=== PATIENT | female | born 1955 | race Caucasian/White ===

== ENCOUNTER 2017-08-15 20:31 | Emergency (ER) | payer OTHER ==
[~2017-08-15] VITALS: Ht 152.4 cm; Wt 70.3 kg
[~2017-08-15 20:31] MED LIST: ALTACE5 MG ORAL; IBUPROFEN600 MG PO; LIPITOR40 MG ORAL; METFORMIN HCL1000 M1 ORAL; NORCO 5-325 TA1 EACH ORAL; VALIUM5 MG ORAL
[2017-08-15] MEDS ORDERED: FISH OIL500 M3 PO (20:41)
[2017-08-15] MEDS ORDERED: ASPIR 8181 MG ORAL (20:41)
[2017-08-15] MEDS ORDERED: PRAVACHOL20 MG ORAL (20:41)
[2017-08-15] MEDS ORDERED: ZETIA10 MG ORAL (20:41)
[2017-08-15 21:00] VITALS: BP 156/80
--- NOTE | 2017-08-15 21:22 | Emergency Room Report ---
History of Present Illness General Chief Complaint: Hypertension Source: Patient Present Illness HPI 61yo F c/o L scapular pain since yesterday morning with associated blurred vision of her L eye and dizziness She denies n/v, d/c, SOB, f/c, leg pain/swelling, cough, syncope, CP/Abd pain, n /t/weakness, slurred speech. She has not tried meds for her pain, it is intermittent and non-radiating, achy , moderate intensity, with no alleviating or exacerbating features. Allergies: Coded Allergies: CODEINE (Unverified Allergy, Unknown, 12/03/13) MORPHINE (Verified Adverse Reaction, Severe, GI UPSET, 04/01/13) Patient History Past Medical History: see triage record Now: No : 3 Para: 3 Reviewed Nursing Documentation: PMH: Agreed; PSxH: Agreed Nursing Documentation-PMH Hx Cardiac Problems: No - high cholesterol Hx Hypertension: Yes Hx Diabetes: Yes Hx Cancer: No Hx Gastrointestinal Problems: No Hx Neurological Problems: No Review of Systems All Other Systems: negative except mentioned in HPI Physical Exam Vital Signs Date Time Temp Pulse Resp B/P (MAP) Pulse Ox O2 Delivery O2 Flow Rate FiO2 08/15/17 20:35 97.8 84 14 183/89 97 Room Air 97.9 Sp02 EP Interpretation: reviewed, normal General Appearance: no apparent distress, alert, non-toxic Head: normocephalic Eyes: bilateral eye normal inspection, bilateral eye PERRL, bilateral eye EOMI ENT: normal ENT inspection, hearing grossly normal, normal pharynx, no angioedema, normal voice, moist mucus membranes Neck: normal inspection, full range of motion, supple, supple/symm/no masses Respiratory: chest non-tender, lungs clear, normal breath sounds, chest symmetrical, palpation of chest normal Cardiovascular #1: normal peripheral pulses, regular rate, rhythm Cardiovascular #2: 2+ radial (R), 2+ radial (L), 2+ dorsalis pedis (R), 2+ dorsalis pedis (L) Gastrointestinal: normal inspection, non tender, soft, no mass, no guarding, no rebound Rectal: deferred Genitourinary: normal inspection, no CVA tenderness Musculoskeletal: back normal, gait/station normal, normal range of motion, non- tender, no calf tenderness, Ashley's Sign negative Neurologic: alert, responsive, child care team lead III-XII nml as tested, motor strength/tone normal, sensory intact, speech normal, no pronator Psychiatric: judgement/insight normal, memory normal, mood/affect normal Skin: normal color, no rash, warm/dry, normal turgor Lymphatic: no adenopathy Medical Decision Making ER Course 61-year-old female with history of hypertension, hyperlipidemia, diabetes type 2 , his tobacco use history, presenting with blurred vision intermittently from her left eye, dizziness, atraumatic left scapula pain, normal EKG, blood pressure is improved compared to the systolic of 180s that she reported at home yesterday, she's had no changes in medication, and has never had an evaluation for a stroke or acute coronary syndrome. I do think she will require admission for reevaluation in rule out DC as well as possible neurologic monitoring to ensure her dizziness and visual symptoms do not persist or progress, I do think she may need a cardiac stress test if this left scapular pain represents atypical angina. Patient's chest x-ray did reveal a widened mediastinum when compared to previous chest x-ray dated 12/03/2013 Therefore, patient had a CT angiogram chest abdomen pelvis ordered to evaluate for possible aortic dissection, given the patient's scapular pain, hypertension , dizziness, left eye pain, abnormal mediastinal silhouette. Peripheral pulses were symmetrical, however this finding is still concerning. She'll be given Flexeril for pain in the interim until further evaluation is completed and then likely given aspirin if there is no evidence of any aortic dissection, and no evidence of any intracranial bleeding. EKG Diagnostic Results EKG Time: 20:59 EP Interpretation: no st-t changes, no twi Rate: normal Rhythm: NSR ST Segments: no acute changes ASA given to the pt in ED: Yes Rhythm Strip Diag. Results Rhythm Strip Time: 21:23 EP Interpretation: yes Rate: 77 Rhythm: NSR, no PVC's, no ectopy Chest X-Ray Diagnostic Results Chest X-Ray Diagnostic Results : Chest X-Ray Ordered: Yes # of Views/Limited/Complete: 1 View Indication: Other EP Interpretation: Yes PA Xray: Interpretation reviewed Interpretation: no consolidation, no effusion, no pneumothorax, other - widened mediastinum Impression: Other - widened mediastinum Electronically Signed by: Gerri Wiseman MD CT/MRI/US Diagnostic Results CT/MRI/US Diagnostic Results : Imaging Test Ordered: ct head Last Vital Signs Date Time Temp Pulse Resp B/P (MAP) Pulse Ox O2 Delivery O2 Flow Rate FiO2 08/15/17 20:35 97.8 84 14 183/89 97 Room Air 97.9 Status: improved Reevaluation Impression Patient's CT head as well as CT chest abdomen pelvis for aortic pathology is negative for any acute pathology at all. Her labs are negative for any acute pathology as well, her EKG is unremarkable, she is still having left scapular pain, she was given a full dose of aspirin and will be admitted to Dr. Hamilton Copeland. Possible ACS. Disposition: ADMITTED INPATIENT Condition: Stable Physician Consult: Admitted to GERRI Rod M.D August 15, 2017 21:22
[2017-08-15] MEDS ORDERED: Cyclobenzaprine 10mg Tab ORAL ONE (21:30)
[2017-08-15] MEDS ORDERED: Isovue-370 150ml vial INJ PRN (21:30)
[2017-08-15 21:35] LABS: BASOPHILS % (AUTO) 1.6 % (0.0-2.0); EOSINOPHILS % (AUTO) 7.5 % (0.0-3.0); HEMATOCRIT 45.9 % (37.0-47.0); HEMOGLOBIN 15.2 G/DL (12.0-16.0); LYMPHOCYTES % (AUTO) 40.8 % (20.0-45.0); MEAN CORPUSCULAR VOLUME 86 FL (80-99); NEUTROPHILS % (AUTO) 43.1 % (45.0-75.0); PLATELET COUNT 168 K/UL (150-450); RED BLOOD COUNT 5.36 M/UL (4.20-5.40); RED CELL DISTRIBUTION WIDTH 12.7 % (11.6-14.8); WHITE BLOOD COUNT 7.6 K/UL (4.8-10.8)
[2017-08-15 21:39] LABS: ANION GAP 9 mmol/L (5-15); BLOOD UREA NITROGEN 16 mg/dL (7-18); CALCIUM 9.5 MG/DL (8.5-10.1); CARBON DIOXIDE 29 MMOL/L (21-32); CHLORIDE 102 MMOL/L (98-107); CREATININE 0.6 MG/DL (0.55-1.30); POTASSIUM 3.4 MMOL/L (3.5-5.1); SODIUM 140 MMOL/L (136-145)
[2017-08-15 21:54] LABS: ALANINE AMINOTRANSFERASE 32 U/L (12-78); ALBUMIN 3.9 G/DL (3.4-5.0); ALKALINE PHOSPHATASE 67 U/L (46-116); ASPARTATE AMINO TRANSFERASE 17 U/L (15-37); BILIRUBIN,TOTAL 0.2 MG/DL (0.2-1.0); CKMB 2.1 NG/ML (0.0-3.6); CREATINE KINASE 135 U/L (26-308)
[2017-08-15 22:47] VITALS: BP 144/80
[2017-08-16 00:41] VITALS: BP_SYST 144; BP_SYST 147; BP_DIAS 74; BP_DIAS 80
--- NOTE | 2017-08-16 08:56 | Diagnostic Imaging Report ---
Indications: Dizziness, headache Technique: Spiral acquisitions obtained through the brain. Angled axial and coronal 5 x 5 mm slices were reconstructed. Total dose length product 1326.82 mGycm. CTDI vol(s) 70.38 mGy. Dose reduction achieved using automated exposure control Comparison: 12/03/2013 Findings: There is frontal volume loss. No acute intracranial hemorrhage or edema, mass effect, or midline shift. Normal vera-white differentiation. There is evidence of empty sella. Visualized orbits are unremarkable. There is left ethmoid sinus disease. The mastoids are clear. The calvarium is intact. Impression: Mild frontal cortical volume loss. Negative for acute intracranial bleed or mass effect Sinus disease Incidental findings as noted This agrees with the preliminary interpretation provided overnight by [facility]. The CT scanner at [facility] is accredited by the [employer] and the scans are performed using protocols designed to limit radiation exposure to as low as reasonably achievable to attain images of sufficient resolution adequate for diagnostic evaluation.
--- NOTE | 2017-08-16 09:07 | Diagnostic Imaging Report ---
INDICATION: Hypertension, shortness of breath, pain radiating to left shoulder TECHNIQUE: IV administration nonionic contrast. Arterial phase spiral acquisitions obtained through the chest, abdomen, and pelvis. Multiplanar and 3-D reconstructions were generated. Total dose length product 1169 mGycm. CTDIvol(s) 8, 32, 16 mGy. Radiation dose was minimized using automated exposure control COMPARISON: none FINDINGS Vascular: The pulmonary arteries are well opacified. No intraluminal filling defects or other findings to suggest acute pulmonary embolus demonstrated. Normal caliber pulmonary arteries. No evidence of right ventricular dilatation. Normal heart size. No evidence of thoracic aortic aneurysm or dissection. Normal caliber nonstenotic great neck vessels with normal branching anatomy. No evidence of abdominal aortic aneurysm or dissection. Patent nonstenotic visceral vessels with normal branching anatomy. No significant stenosis demonstrated. Patent nonstenotic bilateral common iliac, external iliac, and common femoral arteries. Chest: The lungs demonstrate posterior dependent atelectatic changes, are otherwise clear, no infiltrates, effusions, masses, or nodules demonstrated. No mediastinal or hilar mass or adenopathy. No pericardial effusion. There are bilateral breast implants. No axillary or chest wall mass or adenopathy. The included thyroid is unremarkable. The bones are unremarkable. Esophagus is unremarkable. Abdomen pelvis: The appendix is normal. No evidence of diverticulosis or diverticulitis. Small bowel loops are slightly prominent, fluid-filled, with slightly prominent mural enhancement. This appearance extends to the terminal ileum. No free or loculated intraperitoneal air or fluid. The stomach and duodenum are unremarkable. The liver, gallbladder, bile ducts, pancreas, spleen, adrenals, kidneys are all unremarkable. Uterus and ovaries are unremarkable except for a few small uterine calcifications. No pelvic mass or adenopathy. No retroperitoneal or mesenteric mass or adenopathy. The bladder is mildly distended. The bones are unremarkable. IMPRESSION: No evidence of acute pulmonary embolus, aneurysm, dissection, or other acute thoracic or abdominal/pelvic vascular pathology Mildly prominent fluid-filled small bowel loops with wall enhancement, could indicate enteritis changes. Correlate with clinical findings Bilateral basilar dependent pulmonary atelectatic changes Distended bladder Bilateral breast implants This agrees with the preliminary interpretation provided overnight by [facility]. The CT scanner at [facility] is accredited by the [employer] and the scans are performed using protocols designed to limit radiation exposure to as low as reasonably achievable to attain images of sufficient resolution adequate for diagnostic evaluation.
--- NOTE | 2017-08-16 11:16 | Diagnostic Imaging Report ---
Indication: Chest pain Technique: One view of the chest Comparison: 12/03/2013 Findings: Lungs and pleural spaces are clear. The heart size is upper limits of normal. The aorta is tortuous and somewhat ectatic. No significant interim change Impression: No acute process
--- NOTE | 2017-08-19 14:02 | Cardiology Report ---
APPROVED REPORT EKG Measurement Heart [id number] Normal sinus rhythm Septal infarct, age undetermined Abnormal ECG
== END 2017-08-16 00:52 | disposition left against medical advice (07) ==
LOC: EMR 21:20 → CANBEDREQ 08-16 00:06 → EMR 08-16 00:52
DX: M25.512 Pain in left shoulder (principal); R42 Dizziness and giddiness; H53.8 Other visual disturbances; I10 Essential (primary) hypertension; E78.5 Hyperlipidemia, unspecified; E11.9 Type 2 diabetes mellitus without complications; Z87.891 Personal history of nicotine dependence; Z88.5 Allergy status to narcotic agent
CPT/HCPCS: 36415; 70450; 71045; 71275; 74174; 80053; 82550; 82553; 84484; 85025; 93005; 99284; Q9967

== ENCOUNTER 2018-05-23 21:38 | Inpatient (IN) | payer OTHER ==
[~2018-05-23] VITALS: Ht 152.4 cm; Wt 72.6 kg
[~2018-05-23 21:38] MED LIST changes: +ASPIR 8181 MG ORAL; +FISH OIL500 M3 PO; +PRAVACHOL20 MG ORAL; +ZETIA10 MG ORAL
--- NOTE | 2018-05-23 21:50 | NUR ---
ED Nurse Note: Patient walk in c/o fever, chills, chest pain, back pain. Patient states she fainted on saturday but did not go to the hospital. Temp 100.4. AO4. NAD.
--- NOTE | 2018-05-23 21:58 | Emergency Room Report ---
History of Present Illness General Chief Complaint: Chest Pain Source: Patient Present Illness HPI This is a 62-year-old female with a history of high blood pressure and diabetes. She presents with chief complaint of fever, chest pain, and back pain. Onset for 3 days now. 3 days ago, she was at a wedding when she had a syncopal episode while sitting. She refused 911 transport. She went home after the wedding and since then she's been in bed. She had high fever. She has nausea but no vomiting. She has chest pain and upper back pain bilaterally. Nothing made it better. And exertion makes it worse. Did not take anything for this. She just finished a seven-day course of Macrobid for UTI. Pain is 9 out of 10. Nothing made it better. Any movement made it worse. Allergies: Coded Allergies: CODEINE (Unverified Allergy, Unknown, 12/03/13) MORPHINE (Verified Adverse Reaction, Severe, GI UPSET, 04/01/13) Patient History Past Medical History: DM, HTN Past Surgical History: none Pertinent Family History: none Social History: Denies: smoking Last Menstrual Period: ALEJA Now: No Immunizations: other Reviewed Nursing Documentation: PMH: Agreed; PSxH: Agreed Nursing Documentation-PMH Past Medical History: No History, Except For Hx Cardiac Problems: No - high cholesterol Hx Hypertension: Yes Hx Diabetes: Yes Hx Cancer: No Hx Gastrointestinal Problems: No Hx Neurological Problems: No Review of Systems Constitutional: Reports: fever, malaise, weakness Eye: Denies: eye pain, blurred vision ENT: Denies: ear pain, nose congestion, throat swelling Respiratory: Reports: shortness of breath; Denies: cough Cardiovascular: Reports: chest pain; Denies: palpitations Gastrointestinal: Denies: abdominal pain, diarrhea, nausea, vomiting Musculoskeletal: Reports: back pain; Denies: joint pain Skin: Denies: rash Neurological: Denies: headache, numbness Endocrine: Denies: increased thirst, increased urine Hematologic/Lymphatic: Denies: easy bruising All Other Systems: negative except mentioned in HPI Physical Exam Vital Signs Date Time Temp Pulse Resp B/P (MAP) Pulse Ox O2 Delivery O2 Flow Rate FiO2 05/23/18 21:42 100.4 128 20 51/75 95 Room Air vitals with fever and tachycardia and high blood pressure Sp02 EP Interpretation: reviewed, normal General Appearance: no apparent distress, alert, other - Ill-appearing Head: normocephalic, atraumatic Eyes: bilateral eye PERRL, bilateral eye EOMI ENT: hearing grossly normal, normal pharynx Neck: full range of motion, supple, no meningismus Respiratory: chest non-tender, lungs clear, normal breath sounds Cardiovascular #1: regular rate, rhythm, no murmur Gastrointestinal: normal bowel sounds, non tender, no mass, no organomegaly, no bruit, non-distended Musculoskeletal: back normal, gait/station normal, normal range of motion Neurologic: alert, oriented x3 Psychiatric: mood/affect normal Skin: warm/dry Medical Decision Making Diagnostic Impression: Primary Impression: Influenza-like illness Additional Impressions: CAP (community acquired pneumonia) Qualified Codes: J18.9 - Pneumonia, unspecified organism Sepsis Qualified Codes: A41.9 - Sepsis, unspecified organism ER Course Patient with flulike illness and possible pneumonia on chest x-ray. She does have some increase in tissue markings bilaterally. She has no cough or shortness of breath however. She still have a fever for 4 days. She does not want to stay in the hospital but I was able to convince to stay. Will start tamiflu even though this has been 4 days of symptoms. No evidence of ACS, PE, dissection to name a few. patient will be admitted here. I discussed case with Dr. Le for admission. EKG Diagnostic Results Rate: tachycardiac Rhythm: NSR ST Segments: no acute changes Rhythm Strip Diag. Results EP Interpretation: yes Rate: 95 Rhythm: NSR Chest X-Ray Diagnostic Results Chest X-Ray Diagnostic Results : Chest X-Ray Ordered: Yes # of Views/Limited/Complete: 1 View Last Vital Signs Date Time Temp Pulse Resp B/P (MAP) Pulse Ox O2 Delivery O2 Flow Rate FiO2 05/23/18 21:42 100.4 128 20 51/75 95 Room Air Status: improved Disposition: ADMITTED INPATIENT Condition: Serious Tom Smith MD May 23, 2018 21:58
[2018-05-23] MEDS ORDERED: Sodium Chloride 2,200 ML IVLG ONE (22:00)
[2018-05-23] MEDS ORDERED: Ketorolac 30mg Inj IV ONE (22:00)
[2018-05-23] MEDS ORDERED: Acetaminophen 500mg (ES) tab ORAL ONE (22:00)
--- NOTE | 2018-05-23 22:00 | NUR ---
ED Nurse Note: Blood drawn; sent down to lab.
[2018-05-23 22:15] LABS: BASOPHILS % (AUTO) 0.5 % (0.0-2.0); EOSINOPHILS % (AUTO) 5.9 % (0.0-3.0); HEMATOCRIT 41.9 % (37.0-47.0); HEMOGLOBIN 13.8 G/DL (12.0-16.0); LYMPHOCYTES % (AUTO) 8.2 % (20.0-45.0); MEAN CORPUSCULAR VOLUME 85 FL (80-99); MONOCYTES % (AUTO) 3.8 % (1.0-10.0); NEUTROPHILS % (AUTO) 81.6 % (45.0-75.0); PLATELET COUNT 143 K/UL (150-450); RED BLOOD COUNT 4.95 M/UL (4.20-5.40); RED CELL DISTRIBUTION WIDTH 13.2 % (11.6-14.8); WHITE BLOOD COUNT 13.8 K/UL (4.8-10.8)
[2018-05-23 22:24] LABS: ANION GAP 10 mmol/L (5-15); BLOOD UREA NITROGEN 10 mg/dL (7-18); CARBON DIOXIDE 28 MMOL/L (21-32); CHLORIDE 101 MMOL/L (98-107); CREATININE 0.8 MG/DL (0.55-1.30); POTASSIUM 3.7 MMOL/L (3.5-5.1); SODIUM 139 MMOL/L (136-145)
[2018-05-23 22:38] LABS: ALANINE AMINOTRANSFERASE 23 U/L (12-78); ALBUMIN 3.6 G/DL (3.4-5.0); ALBUMIN/GLOBULIN RATIO 0.9 (1.0-2.7); ALKALINE PHOSPHATASE 61 U/L (46-116); ASPARTATE AMINO TRANSFERASE 12 U/L (15-37); BILIRUBIN,TOTAL 0.4 MG/DL (0.2-1.0); CKMB 0.5 NG/ML (0.0-3.6); CREATINE KINASE 86 U/L (26-308)
--- NOTE | 2018-05-23 22:40 | Diagnostic Imaging Report ---
EXAM: XR Chest, 1 View CLINICAL HISTORY: CP TECHNIQUE: Frontal view of the chest. COMPARISON: Compared to 08/15/17. FINDINGS: Lungs: Mild increased interstitial markings are suspected in the lungs. This may be related to some mild interstitial edema. No definite plain film evidence for focal infiltrate. Pleural space: No definite plain film evidence for pneumothorax. Heart: Unremarkable. No cardiomegaly. Mediastinum: There is some prominence of the mediastinum. This may be related to patient rotation. Bones/joints: Degenerative changes of the thoracic spine. Other findings: The patient is rotated to the right. IMPRESSION: Mild increased interstitial markings are suspected in the lungs. This may be related to some mild interstitial edema.
--- NOTE | 2018-05-23 22:40 | NUR ---
ED Nurse Note: urine collected; sent down to lab.
[2018-05-23 23:15] VITALS: BP 151/75
[2018-05-23 23:16] LABS: APPEARANCE,URINE CLEAR; BILIRUBIN, URINE NEGATIVE (NEGATIVE); COLOR,URINE PALE YELLOW; GLUCOSE, URINE (UA) NEGATIVE (NEGATIVE); KETONES,URINE NEGATIVE (NEGATIVE); LEUKOCYTE ESTERASE ,URINE NEGATIVE (NEGATIVE); NITRITE,URINE NEGATIVE (NEGATIVE); PH,URINE 8 (4.5-8.0); PROTEIN,URINE NEGATIVE (NEGATIVE); UROBILINOGEN,URINE NORMAL MG/DL (0.0-1.0)
[2018-05-23] MEDS ORDERED: cefTRIAXone 1 GM in NS 55 ML IVPB ONE (23:30)
--- NOTE | 2018-05-23 23:30 | NUR ---
ED Nurse Note: Repeat lactic drawn; sent down to lab with Cira Veloz.
[2018-05-24] MEDS ORDERED: Oseltamivir 75mg cap ORAL ONE ×2 (00:51→01:00)
--- NOTE | 2018-05-24 01:30 | NUR ---
ED Nurse Note: repeat lactic drawn; sent down to lab with yefri finch. Temp 98.3
[2018-05-24 01:56] VITALS: BP 128/73
[2018-05-24 02:45] VITALS: BP 121/66
--- NOTE | 2018-05-24 02:45 | NUR ---
ED Nurse Note: Patient resting comfortably, no s/s of acute distress. Voiding and ambulating.
--- NOTE | 2018-05-24 03:30 | NUR ---
TRANSFER TO FLOOR: Patient transferred to [facility] 420-2 as ordered, per MD Rey. Report given to REBEL Benitez. Belongings list completed with receiving RN. Pt AO4. RASHAUN. ALEXS.
--- NOTE | 2018-05-24 03:50 | NUR ---
NURSE NOTES: Received report from Renan Keys RN in ER at 0330. Pt arrived on unit approx 0340. Pt vitals 97.6T 88HR 17rr 136/81, 92%RA and no c/o of pain or signs of distress, alert, oriented, ambulatory, able to make needs known, call light within reach. While speaking with the patient, she had 1 episode of clear vomit, a small amount. Pt stated that she parked her car on [address], Russel(Inquirly) came with Jann(Inquirly) and pt agreed to give her keys to Jann to move her car to the [facility]. Pt keys returned to her. Contacted Dr. Le for admitting orders, I put in the orders received and he stated he will be in later to see the patient.
[2018-05-24] MEDS ORDERED: Albuterol/Ipratropium 3ml neb HHN PRN (04:15)
[2018-05-24] MEDS: Azithromycin 500 MG in D5W 275 ML IVPB SCH (05:38)
[2018-05-24 06:10] LABS: BASOPHILS % (AUTO) 0.5 % (0.0-2.0); EOSINOPHILS % (AUTO) 6.8 % (0.0-3.0); HEMOGLOBIN 12.7 G/DL (12.0-16.0); LYMPHOCYTES % (AUTO) 10.6 % (20.0-45.0); MEAN CORPUSCULAR VOLUME 85 FL (80-99); MONOCYTES % (AUTO) 4.9 % (1.0-10.0); NEUTROPHILS % (AUTO) 77.2 % (45.0-75.0); PLATELET COUNT 126 K/UL (150-450); RED BLOOD COUNT 4.46 M/UL (4.20-5.40); RED CELL DISTRIBUTION WIDTH 13.4 % (11.6-14.8)
[2018-05-24 06:28] LABS: ALANINE AMINOTRANSFERASE 21 U/L (12-78); ALBUMIN/GLOBULIN RATIO 0.9 (1.0-2.7); ALKALINE PHOSPHATASE 54 U/L (46-116); ANION GAP 10 mmol/L (5-15); ASPARTATE AMINO TRANSFERASE 12 U/L (15-37); BILIRUBIN,TOTAL 0.4 MG/DL (0.2-1.0); BLOOD UREA NITROGEN 6 mg/dL (7-18); CALCIUM 7.5 MG/DL (8.5-10.1); CARBON DIOXIDE 24 MMOL/L (21-32); CHLORIDE 110 MMOL/L (98-107); CREATININE 0.5 MG/DL (0.55-1.30); POTASSIUM 3.1 MMOL/L (3.5-5.1); SODIUM 144 MMOL/L (136-145)
--- NOTE | 2018-05-24 07:44 | NUR ---
HAND-OFF: Report given to REBEL Douglas.
[2018-05-24 08:00] VITALS: BP 117/74
--- NOTE | 2018-05-24 10:20 | NUR ---
NURSE NOTES: Left message for Dr. Le: K 3.1, BUN 6, Cr 0.5, Ca 7.5. Pt asking when he will be in to see her.
--- NOTE | 2018-05-24 10:54 | NUR ---
CASE MANAGEMENT: REVIEW 62/F PRESENTED TO ED FROM HOME CC: CHEST PAIN X3DAYS . SYNCOPE SI: PNA . SEPSIS T 101.4 HR 128 RR 20 BP 151/75 SAT 95% ROOM AIR WBC 13.8 LACTIC ACID 2.50 IS: TORADOL IV X1 TYLENOL PO X1 NS IVF BOLUS X1 CEFTRIAXONE IV X1 TAMIFLU PO X1 PATIENT ADMITTED TO MED/SURG UNIT 05/23/2018 DCP: PATIENT IS FROM HOME
[2018-05-24 11:43] VITALS: BP 128/77
--- NOTE | 2018-05-24 13:10 | NUR ---
NURSE NOTES: Left message for Dr. Le, pt is asking to speak with him and has questions for her treatment plan
--- NOTE | 2018-05-24 14:40 | NUR ---
NURSE NOTES: Dr. Le called back, explained to him that pt is asking about going home with oral antibiotics and has numbness and tingling in her hands. Dr. Le stated he will be here this afternoon/early evening to see pt, no discharge yet.
[2018-05-24] MEDS ORDERED: Tubing IV Secondary IV ONE (15:07)
[2018-05-24] MEDS ORDERED: D5W 275ml ONE (15:07)
[2018-05-24] MEDS ORDERED: NS 275ml ONE (15:07)
[2018-05-24 15:36] VITALS: BP 122/77
--- NOTE | 2018-05-24 15:56 | NUR ---
NURSE NOTES: 1600 vitals showed temp 100.4, gave pt Tylenol 650mg PO, and cold compress, rechecked temp 99.[address] Le
[2018-05-24] MEDS: NovoLOG Insulin Flexpen SUBQ SCH ×2 (16:50→20:49)
--- NOTE | 2018-05-24 18:17 | NUR ---
NURSE NOTES: Pt states she has had 3 episodes of diarrhea today, per protocol,l entered order for C Diff toxin and provided pt with "hat" for toilet to provide specimen
--- NOTE | 2018-05-24 19:07 | NUR ---
HAND-OFF: Report given to REBEL Marin.
--- NOTE | 2018-05-24 19:49 | NUR ---
NURSE NOTES: Received report from REBEL Douglas. Patient A&Ox4, on room air, no signs of distress or labored breathing. IV intact, patent, and saline locked. Bed in lowest position with call light in reach. Will continue with plan of care.
[2018-05-24 20:00] VITALS: BP 114/69
[2018-05-24] MEDS ORDERED: cefTRIAXone 1 GM in D5W 55 ML IVPB SCH (23:30)
[2018-05-25] VITALS: BP 109/70
[2018-05-25 04:00] VITALS: BP 123/77
--- NOTE | 2018-05-25 04:30 | Consultation ---
DATE OF CONSULTATION: 05/24/2018 PULMONARY CONSULTATION CONSULTING PHYSICIAN: Peewee Mccormack M.D. HISTORY OF PRESENT ILLNESS: This is a 62-year-old female with history of hypertension and diabetes mellitus. She came to the hospital with fever, diffuse upper and lower chest pain, and back pain. This has been going on for several days. The patient states she also had a syncopal episode several days ago. She reports fever. Denies any abdominal symptoms such as nausea or vomiting. She reports some numbness of both her hands and some mild upper and lower chest discomfort. She has recently completed recent antibiotic course for UTI. ALLERGIES: To morphine and codeine. PAST MEDICAL HISTORY: Diabetes mellitus and hypertension. PAST SURGICAL HISTORY: None. SOCIAL HISTORY: No history of alcohol or tobacco usage. REVIEW OF SYSTEMS: Denies any headaches, hematemesis, melena, hematochezia, . PHYSICAL EXAMINATION: GENERAL: Reveals a 62-year-old female. HEENT: Unremarkable. LUNGS: Clear breath sounds bilaterally. HEART: Normal heart sounds. ABDOMEN: Soft. EXTREMITIES: There is no edema. NEUROLOGIC: Nonfocal. LABORATORY DATA: Lab testing shows potassium 3.1, creatinine 0.5, platelet count is 126,000 otherwise normal remainder data. Her white count, however, was noted to be 13. on admission, now it is 11.0. Urinalysis negative. Imaging studies shows interstitial appearing process, possibly pneumonia. She underwent an influenza antigen swab, which was negative for influenza A and B. IMPRESSION: 1. Probable pneumonia. 2. Hypertension. 3. Diabetes mellitus. DISCUSSION: The patient needs a cardiac work up. Dr. Le will be seeing her shortly. I anticipate she will need a 2D echo. She has nonspecific symptoms, however, the x-ray chest is not definitive for pneumonia, only suspicious. Recommend 2D echo, which I will order. Will follow as surgical oncologist, agree with the use of antibiotics. The patient has just received Tamiflu, which at this point may be discontinued given negative influenza swab. Continue Rocephin and azithromycin. We will follow carefully. Peewee Mccormack M.D. DR: ESTEFANY JOB#: [id number] CC:
--- NOTE | 2018-05-25 04:45 | Progress Note ---
DATE: 05/24/2018 INTERNAL MEDICINE PROGRESS NOTE SUBJECTIVE: The patient feels better, still weak. She is still having fevers. She has no shortness of breath, but some cough. OBJECTIVE: VITAL SIGNS: T-max 101.4, blood pressure 117/74, pulse 89, and respiratory rate 20. LUNGS: Few rhonchi. HEART: Regular rhythm and rate. Normal S1 and S2. ABDOMEN: Soft. No CVA tenderness. No edema. DIAGNOSTIC DATA: Echocardiogram with normal ejection fraction. IMPRESSION: 1. Community-acquired pneumonia. 2. Lactic acidosis, resolved. 3. Recurring fevers, improved. No signs of acute congestive heart failure. 4. History of hypertensive heart disease with diastolic dysfunction. 5. Type 2 diabetes mellitus with hyperglycemia. PLAN: 1. Antimicrobials. 2. Respiratory hygiene and bronchodilators. 3. Follow up cultures. 4. Repeat chest x-ray. 5. DVT prophylaxis. 6. Titrate antihypertensive and diabetic regimen. Vaibhav Le M.D. DR: MU JOB#: [id number] CC:
--- NOTE | 2018-05-25 05:00 | History and Physical Report ---
DATE OF ADMISSION: 05/24/2018 REASON FOR ADMISSION: Fever, chest pain, and possible pneumonia. HISTORY OF PRESENT ILLNESS: This is a 62-year-old [place] female. She has had fevers, back pain, chest pain for several days. She also had a syncopal episode while seated at a wedding. She went home subsequently refusing to go to the hospital and has stayed in bed since with high fevers, nausea, anorexia, but no vomiting. She has back and chest pain. She has had slight cough. She feels worse with walking. She recently completed a course of oral antibiotics for urine infection. ALLERGIES: Include codeine and morphine. MEDICATIONS: Medications prior to admission, reviewed and reconciled. PAST MEDICAL HISTORY: Type 2 diabetes mellitus, hypertension, hyperlipidemia. SOCIAL HISTORY: Nonsmoker. No alcohol or substance abuse. REVIEW OF SYSTEMS: A 10-point review of systems performed. All systems negative other than noted above. PHYSICAL EXAMINATION: VITAL SIGNS: On initial presentation, temperature 100.4, blood pressure 151/75, heart rate 128, respiratory rate 20. T-max 101.4. HEENT: Conjunctivae pink. Sclerae anicteric. Oropharynx clear. Mucous membranes moist. NECK: Supple. Jugular venous pressure normal. LUNGS: With few rhonchi. CARDIAC: Regular rhythm and rate. Normal S1, S2 with no murmur. ABDOMEN: Soft, nontender. No CVA tenderness. EXTREMITIES: No edema. LABORATORY AND DIAGNOSTIC DATA: White count 13.8, hemoglobin 13.8. Lactic acid 2.4, repeat at 2.5. Potassium 3.7, BUN 10, creatinine 0.8, glucose 186, albumin 3.6. Liver function within normal limits. Urinalysis with no white cells. Chest x-ray revealed interstitial markings increased diffusely and possibly associated with edema versus infiltrate. IMPRESSION: 1. Sepsis, probable viral syndrome, probable community-acquired pneumonia. 2. Lactic acidosis. 3. Hypovolemia and dehydration. 4. Toxic encephalopathy. 5. Hypertensive heart disease. 6. Type 2 diabetes mellitus. RECOMMENDATIONS: 1. Panculture. 2. Empiric antibiotics. 3. Respiratory hygiene. 4. Insulin coverage by sliding scale. 5. Repeat chest x-ray. 6. We will update care plan based on clinical course. Vaibhav Le M.D. DR: Anand JOB#: [id number] CC:
[2018-05-25 06:01] LABS: HEMATOCRIT 38.8 % (37.0-47.0); LYMPHOCYTES % (AUTO) 27.1 % (20.0-45.0); MEAN CORPUSCULAR VOLUME 85 FL (80-99); MONOCYTES % (AUTO) 7.1 % (1.0-10.0); NEUTROPHILS % (AUTO) 50.8 % (45.0-75.0); PLATELET COUNT 134 K/UL (150-450); RED BLOOD COUNT 4.58 M/UL (4.20-5.40); RED CELL DISTRIBUTION WIDTH 13.4 % (11.6-14.8); WHITE BLOOD COUNT 6.8 K/UL (4.8-10.8)
[2018-05-25] MEDS: NovoLOG Insulin Flexpen SUBQ SCH ×4 (06:23→11:50)
[2018-05-25] MEDS: Azithromycin 500 MG in D5W 275 ML IVPB SCH (06:24)
[2018-05-25 06:42] LABS: ALANINE AMINOTRANSFERASE 18 U/L (12-78); ALBUMIN 2.9 G/DL (3.4-5.0); ALBUMIN/GLOBULIN RATIO 0.8 (1.0-2.7); ALKALINE PHOSPHATASE 49 U/L (46-116); ANION GAP 7 mmol/L (5-15); ASPARTATE AMINO TRANSFERASE 16 U/L (15-37); BILIRUBIN,TOTAL 0.4 MG/DL (0.2-1.0); BLOOD UREA NITROGEN 6 mg/dL (7-18); CALCIUM 8.7 MG/DL (8.5-10.1); CARBON DIOXIDE 25 MMOL/L (21-32); CHLORIDE 109 MMOL/L (98-107); CREATININE 0.6 MG/DL (0.55-1.30); POTASSIUM 3.9 MMOL/L (3.5-5.1); SODIUM 141 MMOL/L (136-145)
--- NOTE | 2018-05-25 07:56 | NUR ---
NURSE NOTES: Report received from REBEL Marin. Pt in bed, awake, talkative, A/O x4, eating breakfast, provided stool sample at 0715, taken to lab, pt bed in lowest, call light within reach.
[2018-05-25 08:00] VITALS: BP 123/78
--- NOTE | 2018-05-25 10:08 | Pulmonology Progress Note ---
Assessment/Plan Assessment/Plan IMPRESSION: 1. Probable pneumonia. 2. Hypertension. 3. Diabetes mellitus. DISCUSSION: Continue abx Await ECHO Will follwo Subjective Interval Events: No new events Constitutional: Reports: no symptoms HEENT: Repors: no symptoms Respiratory: Reports: no symptoms Cardiovascular: Reports: no symptoms Gastrointestinal/Abdominal: Reports: no symptoms Genitourinary: Reports: no symptoms Allergies: Coded Allergies: CODEINE (Unverified Allergy, Unknown, 12/03/13) MORPHINE (Verified Adverse Reaction, Severe, GI UPSET, 04/01/13) Objective Last 24 Hour Vital Signs Date Time Temp Pulse Resp B/P (MAP) Pulse Ox O2 Delivery O2 Flow Rate FiO2 05/25/18 08:50 94 18 Room Air 21 05/25/18 04:00 98.9 92 16 123/77 (92) 98 05/25/18 00:00 98.1 83 17 109/70 (83) 96 05/24/18 21:00 Room Air 05/24/18 20:00 98.6 82 16 114/69 (84) 96 05/24/18 15:56 99.9 05/24/18 15:36 100.4 93 20 122/77 (92) 96 05/24/18 11:43 99.1 92 18 128/77 (94) 98 Intake and Output 05/24/18 05/25/18 18:59 06:59 Intake Total 1140 ml 355 ml Balance 1140 ml 355 ml Intake Oral 1140 ml 300 ml IV Total 55 ml # Voids 2 General Appearance: no acute distress HEENT: normocephalic Respiratory/Chest: chest wall non-tender, lungs clear Cardiovascular: normal peripheral pulses, normal rate Abdomen: normal bowel sounds Microbiology Date/Time Source Procedure Growth Status 05/23/18 22:00 Blood Blood Culture - Preliminary NO GROWTH AFTER 24 HOURS Resulted 05/23/18 21:30 Blood Blood Culture - Preliminary NO GROWTH AFTER 24 HOURS Resulted 05/23/18 22:00 Nasal Nares Influenza Types A,B Antigen (KATHLEEN) - Final Complete Laboratory Tests 05/25/18 04:45: White Blood Count 6.8, Red Blood Count 4.58, Hemoglobin 13.0, Hematocrit 38.8, Mean Corpuscular Volume 85, Mean Corpuscular Hemoglobin 28.4, Mean Corpuscular Hemoglobin Concent 33.5, Red Cell Distribution Width 13.4, Platelet Count 134L, Mean Platelet Volume 11.8H, Neutrophils (%) (Auto) 50.8, Lymphocytes (%) (Auto) 27.1, Monocytes (%) (Auto) 7.1, Eosinophils (%) (Auto) 14.0H, Basophils (%) ( Auto) 1.0, Sodium Level 141, Potassium Level 3.9, Chloride Level 109H, Carbon Dioxide Level 25, Anion Gap 7, Blood Urea Nitrogen 6L, Creatinine 0.6, Estimat Glomerular Filtration Rate > 60, Glucose Level 124H, Calcium Level 8.7, Magnesium Level 1.9, Total Bilirubin 0.4, Aspartate Amino Transf (AST/SGOT) 16, Alanine Aminotransferase (ALT/SGPT) 18, Alkaline Phosphatase 49, Pro-B-Type Natriuretic Peptide 131H, Total Protein 6.5, Albumin 2.9L, Globulin 3.6, Albumin /Globulin Ratio 0.8L Current Medications Medications (Trade) Dose Ordered Sig/Rey Route PRN Reason Start Time Stop Time Status Last Admin Dose Admin Acetaminophen (Tylenol) 650 mg Q4H PRN ORAL Mild Pain 05/24/18 04:15 06/23/18 04:14 05/24/18 15:26 Albuterol/ Ipratropium (Albuterol/ Ipratropium) 3 ml Q4HRT PRN HHN Shortness of Breath 05/24/18 04:15 05/29/18 04:14 Azithromycin 500 mg/Dextrose 275 ml @ 275 mls/hr Q24HRS IVPB 05/24/18 06:00 05/30/18 06:59 05/25/18 06:24 Ceftriaxone Sodium 1 gm/ Dextrose 55 ml @ 110 mls/hr Q24H IVPB 05/24/18 23:30 05/31/18 23:29 05/24/18 23:42 Dextrose (Dextrose 50%) 25 ml Q30M PRN IV Hypoglycemia 05/24/18 17:00 06/23/18 16:59 Dextrose (Dextrose 50%) 50 ml Q30M PRN IV Hypoglycemia 05/24/18 17:00 06/23/18 16:59 Famotidine (Pepcid) 20 mg BID ORAL 05/24/18 09:00 06/23/18 04:59 05/25/18 08:10 Insulin Aspart (NovoLOG) BEFORE MEALS AND HS SUBQ 05/24/18 21:00 06/23/18 20:59 05/24/18 20:49 Insulin Aspart (NovoLOG) NOVOTIAC SUBQ 05/24/18 16:50 06/23/18 16:49 Peewee Mccormack MD May 25, 2018 10:08
[2018-05-25 12:00] VITALS: BP 135/83
--- NOTE | 2018-05-25 13:03 | NUR ---
NURSE NOTES: Pt is insisting she go home today. Discussed treatment plan with pt, abx therapy, possible pna infection stated by Dr. Mccormack, provided her with educations material this morning around 0835 regarding Lactic Acidosis dx Dr. Le discussed with her yesterday. 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 Explained to pt that if she leave AMA she will not have an antibiotic prescription and risks if she has PNA. Pt insists she wants to go home today. Left message for Dr. Le.
--- NOTE | 2018-05-25 14:25 | NUR ---
CASE MANAGEMENT: REVIEW SI: PNA . SEPSIS T 98.3 HR 80 RR 20 BP 135/83 SAT 98% ROOM AIR GLUCOSE 124 ALBUMIN 2.9 IS: CEFTRIAXONE IV Q24HR NOVOLOG SQ AC/HS AZITHROMYCIN IV Q24HR ALBUTEROL HHN Q4HR PRN MED/SURG STATUS DCP: PATIENT IS FROM HOME
--- NOTE | 2018-05-25 14:35 | NUR ---
NURSE NOTES: Pt discharged home with all belongings, accompanied by daughter, Hope. Pt ambulator. Abx Rx called in to Pharmacy by Dr. Le. All DC papers signed by pt and provided a copy to pt. Pt stable for discharge.
[2018-05-25] MEDS ORDERED: Tubing IV Secondary IV ONE (14:49)
--- NOTE | 2018-05-26 01:15 | Progress Note ---
DATE: 05/25/2018 INTERNAL MEDICINE PROGRESS NOTE SUBJECTIVE: The patient has no cough or congestion. No shortness of breath. She is afebrile. Vitals are stable. White count has normalized. OBJECTIVE: LUNGS: Few rhonchi. HEART: Regular rhythm and rate. Normal S1 and S2. ABDOMEN: Soft. EXTREMITIES: No edema. IMPRESSION: 1. Community-acquired pneumonia. 2. Lactic acidosis, resolved. 3. Moderate protein-calorie malnutrition. 4. Type 2 diabetes mellitus with better glucose control. 5. Hypertensive heart disease with controlled blood pressure. PLAN: 1. Transition from IV to oral antimicrobials. 2. Continue current cardiovascular regimen. 3. Maintain diabetic therapy and advanced ___ diet improves. 4. Protein supplement. 5. Outpatient followup. Vaibhav Le M.D. DR: KARLA JOB#: [id number] CC:
--- NOTE | 2018-05-26 09:21 | Discharge Summary ---
Discharge Summary Discharge Summary _ DATE OF ADMISSION: 05/24/2018 DATE OF DISCHARGE: 04/24/2018 DISCHARGED BY: REASON FOR ADMISSION: 62 years old female with past medical history of type 2 diabetes mellitus, hypertension, hyperlipidemia, presented to emergency department with back pain , chest pain, and fevers for several days. Patient apparently also had a syncopal episode , while sitting in the waiting. Patient initially refused to go to the hospital for evaluation, and stayed in bed with high fever, nausea and anorexia, but no vomiting. Patient reported slight cough. Patient felt worse while walking. She recently completed course of oral antibiotic for urinary tract infection . Upon evaluation patient had low-grade fever 100.4 , was tachycardic with heart rate of 128 .1 Laboratory workup revealed leukocytosis WBC 13.8, stable hemoglobin and hematocrit. Lactic acid 2.4. Stable electrolytes and renal parameters. Glucose 186. Troponin negative. EKG revealed normal sinus rhythm, no acute ischemic changes Albumin 3.6. Urinalysis revealed no evidence of UTI. Chest x-ray demonstrated mild increased interstitial markings. Rapid influenza screen test was negative.. Patient admitted with sepsis, probable viral syndrome possible community- acquired pneumonia ,hypovolemia with dehydration. CONSULTANTS: pulmonary Dr. Mccormack [facility] COURSE: Patient admitted to medical surgical floor. Patient started on the IV hydration and empiric antibiotic after being pancultured. Supplemental oxygen provided as needed to keep pulse oximetry above 92%, pulmonary toilet provided as needed. Bankruptcy Judge followed. Blood sugar was managed with sliding scale of insulin. GI prophylaxis provided. Potassium was replaced. Renal parameters and electrolytes were closely monitored and further corrected as needed. Nephrotoxins were avoided. Patient started on Tamiflu. Stool for C. difficile was negative. Blood culture result back at time of this dictation , negative. Patient was continued on home medication including antiplatelet therapy and statin. Blood pressure was managed with current medication regimen, and remained stable. Fever resolved, pulse oximetry stable on room air. lactic acid down to normal. Patient clinically improved and was stable for discharge home on oral antibiotics. Due to rapid and unexpected improvement in patient condition patient was discharged in one day. FINAL DIAGNOSES: Community-acquired pneumonia Lactic acidosis resolved Hypovolemia and dehydration resolved Toxic encephalopathy Hypertensive heart disease with controlled blood pressure Type 2 diabetes mellitus Moderate protein calorie malnutrition DISCHARGE MEDICATIONS: See Medication Reconciliation list. DISCHARGE INSTRUCTIONS: Patient was discharged home . Follow up with primary care provider in one week. I have been assigned to dictate discharge summary for this account. I was not involved in the patient's management. Shanice López NP May 26, 2018 09:21
--- NOTE | 2018-05-26 16:45 | Cardiology Report ---
APPROVED REPORT EXAM: Two-dimensional and M-mode echocardiogram with Doppler and color Doppler. INDICATION ABNORMAL CARD [facility] M-Mode DIMENSIONS IVSd1.1 (0.7-1.1cm)Left Atrium (MM)3.2 (1.6-4.0cm) LVDd4.8 (3.5-5.6cm)Aortic Root3.1 (2.0-3.7cm) PWd0.9 (0.7-1.1cm)Aortic Cusp Exc.1.6 (1.5-2.0cm) IVSs1.2 cm LVDs3.3 (2.5-4.0cm) PWs1.4 cm Normal left ventricular chamber size, systolic function and wall motion. Left ventricular ejection fraction estimated to be 60-65%. No evidence of left ventricular hypertrophy . Small posterior pericardial effusion . All other cardiac chamber sizes are within normal limits. Mild aortic valve sclerosis with adequate cusp excursion. Mildly thickened mitral valve leaflets with normal excursion. Mild mitral annulus and aortic root calcification. Pulmonic valve not well visualized. IVC at normal size with physiologic collapse. A color flow and spectral Doppler study was performed and revealed: No aortic regurgitation. Normal left ventricular diastolic function . Trace mitral regurgitation. Trace tricuspid regurgitation. Tricuspid systolic velocities suggests peak right ventricular systolic pressure of 31 mmHg.
== END 2018-05-25 14:50 | disposition home or self-care (01) | DRG 193 ==
LOC: EMR 22:30 → 4E 05-24 02:01 → EDBEDREQ 05-24 02:51
DX: J18.9 Pneumonia, unspecified organism (principal); G92 Toxic encephalopathy; E87.2 Acidosis; E44.0 Moderate protein-calorie malnutrition; E86.0 Dehydration; E86.1 Hypovolemia; I11.9 Hypertensive heart disease without heart failure; Z88.6 Allergy status to analgesic agent; E11.65 Type 2 diabetes mellitus with hyperglycemia
CPT/HCPCS: 36415; 71045; 71046; 80053; 81003; 82550; 82553; 82962; 83605; 83735; 83880; 84484; 85025; 86710; 87040; 87324; 93005; 93306; 94664; 96361; 96365; 96375; 99285; J1815; J8499

== ENCOUNTER 2019-09-09 12:36 | Emergency (ER) | payer OTHER ==
[~2019-09-09] VITALS: Ht 157.5 cm; Wt 70.3 kg
--- NOTE | 2019-09-09 13:00 | NUR ---
ED Nurse Note: Pt ambulated to ED from home d/t neck pain radiating to LT shoulder for 2-3 days. Pt is AOx4, calm and cooperative, pt denies any injury nor trauma on the affected site. Pt states she's having difficulty moving her neck d/t pain; and "possibly muscle was pulled out while trying to get something from shelves". VSS, on RA, afebrile on triage. Placed on bed, NAD noted.
[2019-09-09 13:04] VITALS: BP 149/83
[2019-09-09] MEDS ORDERED: Ketorolac 30mg Inj IM ONE (13:15)
[2019-09-09] MEDS ORDERED: Methocarbamol 750mg tab ORAL ONE (13:15)
--- NOTE | 2019-09-09 13:18 | NUR ---
ED Nurse Note: ERPA at bedside.
[2019-09-09 13:47] LABS: BASOPHILS % (AUTO) 1.2 % (0.0-2.0); EOSINOPHILS % (AUTO) 4.1 % (0.0-3.0); HEMATOCRIT 44.6 % (37.0-47.0); HEMOGLOBIN 15.3 G/DL (12.0-16.0); LYMPHOCYTES % (AUTO) 32.4 % (20.0-45.0); MEAN CORPUSCULAR VOLUME 81 FL (80-99); MONOCYTES % (AUTO) 6.7 % (1.0-10.0); NEUTROPHILS % (AUTO) 55.6 % (45.0-75.0); PLATELET COUNT 165 K/UL (150-450); RED BLOOD COUNT 5.48 M/UL (4.20-5.40); RED CELL DISTRIBUTION WIDTH 12.9 % (11.6-14.8); WHITE BLOOD COUNT 8.7 K/UL (4.8-10.8)
--- NOTE | 2019-09-09 13:48 | NUR ---
ED Nurse Note: pt returned from CT
[2019-09-09 13:53] LABS: ANION GAP 12 mmol/L (5-15); BLOOD UREA NITROGEN 14 mg/dL (7-18); CALCIUM 9.5 MG/DL (8.5-10.1); CARBON DIOXIDE 26 MMOL/L (21-32); CHLORIDE 103 MMOL/L (98-107); CREATININE 0.7 MG/DL (0.55-1.30); POTASSIUM 3.8 MMOL/L (3.5-5.1); SODIUM 141 MMOL/L (136-145)
[2019-09-09 13:57] LABS: ALANINE AMINOTRANSFERASE 30 U/L (12-78); ALBUMIN 3.9 G/DL (3.4-5.0); ALBUMIN/GLOBULIN RATIO 1.1 (1.0-2.7); ALKALINE PHOSPHATASE 60 U/L (46-116); ASPARTATE AMINO TRANSFERASE 18 U/L (15-37); BILIRUBIN,TOTAL 0.2 MG/DL (0.2-1.0); INR 1.1 (0.9-1.1)
[2019-09-09 14:29] LABS: APPEARANCE,URINE CLEAR; BILIRUBIN, URINE NEGATIVE (NEGATIVE); GLUCOSE, URINE (UA) 4+ (NEGATIVE); KETONES,URINE NEGATIVE (NEGATIVE); LEUKOCYTE ESTERASE ,URINE 3+ (NEGATIVE); NITRITE,URINE NEGATIVE (NEGATIVE); PH,URINE 7 (4.5-8.0); PROTEIN,URINE NEGATIVE (NEGATIVE); UROBILINOGEN,URINE NORMAL MG/DL (0.0-1.0)
[2019-09-09 14:30] LABS: COLOR,URINE YELLOW
--- NOTE | 2019-09-09 14:55 | Diagnostic Imaging Report ---
Indication: Neck pain Technique: Spiral acquisitions obtained through the cervical spine. No IV contrast utilized. Multiplanar reconstructions were generated. Total dose length product 157 mGycm. CTDIvol(s) 6 mGy. Dose reduction achieved using automated exposure control. Comparison: none Findings: Bony alignment is normal. Vertebral body heights are preserved. There is minimal degenerative disc narrowing at C2-3 and C3-4, more severe degenerative disc narrowing at C6-7 and C7-T1. No acute fractures. No dislocations. There are degenerative changes of the anterior atlantoaxial joint. At C6-7, there is mild bilateral neural foraminal stenosis. At the remaining disc levels, no significant disc bulge or protrusion, spinal stenosis, or neural foraminal narrowing. There is mild facet arthrosis at C6-7 and C7-T1 bilaterally. The included extraspinal soft tissues are unremarkable. Impression: Mild degenerative changes, as detailed above No acute bony trauma The CT scanner at [facility] is accredited by the [employer] and the scans are performed using protocols designed to limit radiation exposure to as low as reasonably achievable to attain images of sufficient resolution adequate for diagnostic evaluation.
--- NOTE | 2019-09-09 15:04 | Diagnostic Imaging Report ---
Indications: Headache Technique: Spiral acquisitions obtained through the brain. Angled axial and coronal 5 x 5 mm slices were reconstructed. Total dose length product 992 mGycm. CTDI vol(s) 53 mGy. Dose reduction achieved using automated exposure control Comparison: 08/15/2017 Findings: There is age-related prominence of the extra axial CSF spaces in the frontal regions. Normal size ventricles. No acute intracranial hemorrhage or edema. No mass effect or midline shift. Normal vera-white differentiation. Visualized orbits are unremarkable. The ethmoid and sphenoid sinuses demonstrate minimal mucosal disease. The mastoids are clear. The calvarium is intact. No significant interim change Impression: Negative for acute intracranial bleed or mass effect Mild age-related frontal volume loss Minimal sinus disease The CT scanner at [facility] is accredited by the [employer] and the scans are performed using protocols designed to limit radiation exposure to as low as reasonably achievable to attain images of sufficient resolution adequate for diagnostic evaluation.
--- NOTE | 2019-09-09 15:12 | Emergency Room Report ---
History of Present Illness General Chief Complaint: Neck Pain Source: Patient Present Illness HPI 63-year-old female with history of hypertension here complaining of 1 week of left-sided headache posterior and periorbital with blurry vision radiating to left-sided neck causing reduced range of motion of neck however no stiffness noted. Denies dizziness and syncope. Denies head injury. Denies chest pain, shortness of breath, palpitation. Denies fever and chills, cough and congestion , abdominal pain, nausea vomiting diarrhea. Reports that she is up-to-date with taking her medication. Denies any cardiac history. Neurovascularly intact and no unilateral generalized weakness noted. Patient appears to be atraumatic. Vital signs are stable. Patient denies photophobia, aura, N/V Allergies: Coded Allergies: CODEINE (Unverified Allergy, Unknown, 12/03/13) MORPHINE (Verified Adverse Reaction, Severe, GI UPSET, 04/01/13) COVID-19 Screening Contact w/high risk pt: No Recent Travel to affected area: No Experienced COVID-19 symptoms?: No COVID-19 Testing performed DIVIDEND DEPOSIT ENTRY CLERK: No Patient History Past Medical History: see triage record Past Surgical History: none Pertinent Family History: none Now: No Immunizations: UTD Reviewed Nursing Documentation: PMH: Agreed; PSxH: Agreed Nursing Documentation-PMH Past Medical History: No History, Except For Hx Cardiac Problems: Yes Hx Hypertension: Yes Hx Diabetes: Yes Hx Cancer: No Hx Gastrointestinal Problems: No Hx Neurological Problems: No Hx Neurologic Surgery: No Hx Brain Shunt: No Review of Systems All Other Systems: negative except mentioned in HPI Physical Exam Vital Signs Date Time Temp Pulse Resp B/P (MAP) Pulse Ox O2 Delivery O2 Flow Rate FiO2 09/09/19 12:51 98.4 90 15 149/83 (105) 99 Room Air Sp02 EP Interpretation: reviewed, normal General Appearance: no apparent distress, alert, GCS 15, non-toxic Head: normocephalic, atraumatic Eyes: bilateral eye normal inspection, bilateral eye PERRL ENT: hearing grossly normal, normal pharynx, no angioedema, normal voice Neck: full range of motion, supple/symm/no masses Respiratory: chest non-tender, lungs clear, normal breath sounds, speaking full sentences Cardiovascular #1: regular rate, rhythm, no edema, no murmur Cardiovascular #2: 2+ carotid (R), 2+ carotid (L), 2+ radial (R), 2+ radial (L) Gastrointestinal: normal bowel sounds, non tender, soft, non-distended, no guarding, no rebound Rectal: deferred Genitourinary: no CVA tenderness Musculoskeletal: back normal, no calf tenderness Neurologic: alert, motor strength/tone normal, oriented x3, sensory intact, responsive, speech normal Psychiatric: judgement/insight normal, memory normal, mood/affect normal, no suicidal/homicidal ideation Skin: no rash Lymphatic: no adenopathy Medical Decision Making PA Attestation All diagnoses and treatment plans were reviewed and discussed with my supervising physician Dr. Langley Diagnostic Impression: Primary Impression: Tension headache Additional Impressions: Cervical strain UTI (urinary tract infection) ER Course 63-year-old female with history of hypertension here complaining of 1 week of left-sided headache posterior and periorbital with blurry vision radiating to left-sided neck causing reduced range of motion of neck however no stiffness noted. Denies dizziness and syncope. Denies head injury. Denies chest pain, shortness of breath, palpitation. Denies fever and chills, cough and congestion , abdominal pain, nausea vomiting diarrhea. Reports that she is up-to-date with taking her medication. Denies any cardiac history. Neurovascularly intact and no unilateral generalized weakness noted. Patient appears to be atraumatic. Vital signs are stable. Patient denies photophobia, aura, N/V Ddx considered but are not limited to: cerebral hematoma, concussion, skull fracture, head contusion fracture, hypertension urgency versus emergency Vital signs: are WNL, pt. is afebrile H&PE are most consistent with: Tension headache, cervical strain, incidental finding of UTI ORDERS: head CT no contrast, CT neck no contrast, chest x-ray, EKG, troponin, CBC and CMP, BNP, Robaxin, Motrin, lidocaine patch, Keflex ED INTERVENTIONS: Robaxin, Toradol DISCHARGE: At this time pt. is stable for d/c to home. Will provide printed patient care instructions, and any necessary prescriptions. Care plan and follow up instructions have been discussed with the patient prior to discharge. Follow-up primary doctor, take medication as directed, if worsening symptoms return to the emergency room EKG Diagnostic Results Rate: normal Rhythm: NSR ST Segments: no acute changes Other Impression No acute ST changes Chest X-Ray Diagnostic Results Chest X-Ray Diagnostic Results : Chest X-Ray Ordered: Yes # of Views/Limited/Complete: 1 View Indication: Other EP Interpretation: Yes GORDO Xray: Interpretation reviewed, by supervising MD, and agrees with findings. Interpretation: no consolidation, no effusion, no pneumothorax Impression: No acute disease Electronically Signed by: Castro Arnett PA-C CT/MRI/US Diagnostic Results CT/MRI/US Diagnostic Results #1: Imaging Test Ordered: Head CT no contrast Impression No intracranial bleed, within normal limits CT/MRI/US Diagnostic Results #2: Imaging Test Ordered: C spine CT no contrast Impression Within normal limits Last Vital Signs Date Time Temp Pulse Resp B/P (MAP) Pulse Ox O2 Delivery O2 Flow Rate FiO2 09/09/19 13:47 98.4 09/09/19 13:04 15 149/83 99 Room Air 09/09/19 12:51 90 Disposition: HOME, SELF-CARE Condition: Stable Scripts Cephalexin* (KEFLEX*) 500 Mg Capsule 500 MG ORAL EVERY 12 HOURS for 7 Days, #14 CAP 0 Refills Prov: Castro Mirza 09/09/19 Lidocaine Patch* (Lidoderm Patch*) 1 Each Adh..patch 1 PATCH TOPIC DAILY, #30 PATCH Patch(es) may remain in place for up to 12 hours in any 24-hour period. Prov: Castro Mirza 09/09/19 Ibuprofen* (MOTRIN*) 600 Mg Tablet 600 MG ORAL Q8H PRN for FOR PAIN, #30 TAB 0 Refills Prov: Castro Mirza 09/09/19 Methocarbamol* (ROBAXIN-500*) 500 Mg Tablet 500 MG ORAL TID PRN for For Pain, #15 TAB 0 Refills Prov: Castro Mirza 09/09/19 Referrals: Keara HOANGREFERRING (PCP) Patient Instructions: Cervical Strain and Sprain With Rehab-SportsMed, Tension Headache, [id number], Urinary Tract Infection, [id number] Additional Instructions: Take medication as directed, follow-up with your primary doctor, avoid strenuous physical activity, if worsening symptoms return to the emergency room Castro Mirza Sep 09, 2019 15:12
[2019-09-09] MEDS ORDERED: LIDODERM700 M1 TOPIC (15:13)
[2019-09-09] MEDS ORDERED: IBUPROFEN600 M1 ORAL (15:13)
[2019-09-09] MEDS ORDERED: ROBAXIN-500MG ORAL (15:13)
[2019-09-09] MEDS ORDERED: CEPHALEXIN500 MG ORAL (15:13)
[2019-09-09 15:21] VITALS: BP 135/82
--- NOTE | 2019-09-09 15:21 | NUR ---
ER DISCHARGE NOTE: Pt is cleared to be discharged per ERPA, pt is aox4, on room air, with stable vital signs. pt was given dc and prescription instructions, pt was able to verbalize understanding, pt id band and iv site removed without complications. pt is able to ambulate with steady gait. pt took all belongings.
--- NOTE | 2019-09-09 16:15 | Diagnostic Imaging Report ---
Indication: Chest pain Technique: One view of the chest Comparison: 05/25/2018 Findings: Bilateral interstitial prominence and central bronchial wall thickening appears similar to the prior exam, likely reflects COPD changes although mild acute interstitial disease also possible. Impression: No definite acute process Mild interstitial prominence appears to be mostly due to bronchial wall thickening, suspect on the basis of COPD/bronchitis
== END 2019-09-09 15:21 | disposition home or self-care (01) ==
LOC: EMR 13:10
DX: G44.209 Tension-type headache, unspecified, not intractable (principal); S16.1XXA Strain of muscle, fascia and tendon at neck level, initial encounter; X58.XXXA Exposure to other specified factors, initial encounter; Y92.9 Unspecified place or not applicable; N39.0 Urinary tract infection, site not specified; Z88.6 Allergy status to analgesic agent; I11.0 Hypertensive heart disease with heart failure; E11.9 Type 2 diabetes mellitus without complications; J32.2 Chronic ethmoidal sinusitis; J32.3 Chronic sphenoidal sinusitis
CPT/HCPCS: 36415; 70450; 71045; 72125; 80053; 81003; 84484; 85025; 85610; 85730; 87086; 93005; 96372; 99284; J1885

== ENCOUNTER 2019-11-30 12:48 | Outpatient (CLI) | payer MEDICARE, OTHER ==
[~2019-11-30] VITALS: Ht 152.4 cm; Wt 73.0 kg
[~2019-11-30 12:48] MED LIST changes: +CEPHALEXIN500 MG ORAL; +IBUPROFEN600 M1 ORAL; +LIDODERM700 M1 TOPIC; +ROBAXIN-500MG ORAL
[2019-11-30 13:20] VITALS: BP 122/76
[2019-12-01] MEDS ORDERED: NEXIUM40 MG ORAL (14:17)
[2019-12-01] MEDS ORDERED: JANUMET 50-1,01 EACH ORAL (14:17)
[2019-12-01] MEDS ORDERED: AMLODIPINE BESYL5 MG ORAL (14:17)
--- NOTE | 2019-12-01 19:14 | Consultation ---
DATE OF CONSULTATION: 11/30/2019 CONSULTING PHYSICIAN: Jacky Orantes MD HISTORY OF PRESENT ILLNESS: Referred for followup endoscopy, colonoscopy she had before and also for complaint of abdominal pain. Her abdominal pain was initially on the left upper quadrant. The pain comes and goes. Sounds like a crampy abdominal pain, which lasts a few minutes and goes away. Denies any nausea or vomiting. Denies any dysphagia. Denies odynophagia. Denies any melena. Denies any hematochezia. PAST MEDICAL HISTORY: 1. Hypertension. 2. Diabetes. 3. Hypercholesteremia. PAST SURGICAL HISTORY: None. MEDICATIONS: Please see medication reconciliation list. FAMILY HISTORY: Mother had colon cancer. SOCIAL HISTORY: Patient denies any tobacco, alcohol, or illicit drug abuse. REVIEW OF SYSTEMS: Positive for abdominal pain as discussed above. PHYSICAL EXAMINATION: VITAL SIGNS: Temperature 98.1, blood pressure is 122/76, pulse 62, respirations 20. HEENT: Normocephalic and atraumatic. Sclerae are anicteric. NECK: Supple. No evidence of obvious lymphadenopathy CARDIOVASCULAR: Regular rate and rhythm. Plus S1 and S2. LUNGS: Clear to auscultation bilaterally. ABDOMEN: Positive bowel sounds. Soft and nontender. No rebound. No guarding. No peritoneal sign. EXTREMITIES: No cyanosis. No clubbing. No edema. ASSESSMENT AND PLAN: This is a 64-year-old female with abdominal pain, nonspecific. She had an endoscopy and colonoscopy in 2018. Endoscopy showed atrophic gastritis without any obvious H. pylori infection. Colonoscopy, she had some polyps, but non malignant. She had 3 polyps. Plan, patient to get a CT of the abdomen and pelvis to evaluate for this nonspecific abdominal pain given her age of 64 and no prior history of a CT. Patient to come back after the CT scan is done and then we will consider doing endoscopy and colonoscopy in May of 2020 to be 3 years from the last one. Jacky Orantes M.D. DR: JULIO JOB#: [id number] CC:
== END 2019-11-30 15:05 | disposition home or self-care (01) ==
LOC: PAN 12:48
DX: R10.9 Unspecified abdominal pain (principal); E78.00 Pure hypercholesterolemia, unspecified; E11.9 Type 2 diabetes mellitus without complications; I10 Essential (primary) hypertension; Z80.0 Family history of malignant neoplasm of digestive organs; K63.5 Polyp of colon
CPT/HCPCS: G0463

== ENCOUNTER 2020-02-08 07:40 | Day surgery (SDC) | payer MEDICARE, OTHER ==
[~2020-02-08] VITALS: Ht 152.4 cm; Wt 70.3 kg
[2020-02-08] VITALS (8 sets, daily range): BP systolic 136–160; BP diastolic 80–100
[~2020-02-08 07:40] MED LIST changes: +AMLODIPINE BESYL5 MG ORAL; +JANUMET 50-1,01 EACH ORAL; +LR 1000ml 1,000 ML IVLG SCH; +NEXIUM40 MG ORAL
[2020-02-08] MEDS ORDERED: LR 1000ml ONE (07:41)
[2020-02-08] MEDS ORDERED: Lidocaine 1% MPF 10mg/ml 5ml ONE (07:41)
[2020-02-08] MEDS ORDERED: Midazolam 2mg/2ml Inj IVP PRN (09:45)
[2020-02-08] MEDS ORDERED: Atropine Inj 1mg/10ml Syr IVP PRN (09:45)
[2020-02-08] MEDS ORDERED: Labetalol 5mg/ml 20ml vial IV PRN (09:45)
[2020-02-08] MEDS ORDERED: LR 1000ml 1,000 ML IVLG SCH (09:45)
[2020-02-08] MEDS ORDERED: fentaNYL 100 mcg/2 mL IV PRN (09:45)
[2020-02-08] MEDS ORDERED: DiphenhydrAMINE 50mg/ml Inj IVP PRN (09:45)
--- NOTE | 2020-02-08 09:45 | Short Stay Surgery H&P ---
History of Present Illness History of Present Illness Chief Complaint see recent office note HPI Esperanza Olivo is a 64 year old female who was admitted on for Gerd, Colon Screening Patient History Allergies: Coded Allergies: CODEINE (Unverified Adverse Reaction, Severe, dizziness, vomiting, 02/04/20) MORPHINE (Verified Adverse Reaction, Severe, dizziness, vomiting, 02/04/20) Medication History Scheduled Amlodipine Besylate* (Amlodipine Besylate*), 5 MG ORAL DAILY, (Reported) Aspirin* (Aspir 81*), 81 MG ORAL DAILY, (Reported) Atorvastatin Calcium* (Lipitor*), 40 MG ORAL BEDTIME, (Reported) Esomeprazole Magnesium (Nexium), 40 MG ORAL DAILY, (Reported) Ezetimibe (Zetia*), 10 MG ORAL BEDTIME, (Reported) Pravastatin Sod* (Pravachol*), 20 MG ORAL BEDTIME, (Reported) Sitagliptin Phos/Metformin Hcl (Janumet 50-1,000 Mg Tablet), 1 TAB ORAL TWICE A DAY, (Reported) Miscellaneous Medications Brandon-3 Fatty Acids (Fish Oil), 500 MG PO, (Reported) Physical Exam Vital Signs Last Vital Signs Date Time Temp Pulse Resp B/P (MAP) Pulse Ox O2 Delivery O2 Flow Rate FiO2 02/08/20 08:58 Room Air 02/08/20 08:44 97.0 76 18 142/80 97 Labs Laboratory Tests Test 02/08/20 09:10 POC Whole Blood Glucose Pending Plan Attestation Are the patient's medical conditions optimized for surgery? Jacky Orantes MD Feb 08, 2020 09:45
--- NOTE | 2020-02-08 09:45 | Pre-Procedure Note/Attestation ---
Pre-Procedure Note/Attestation Complete Prior to Procedure Planned Procedure: not applicable Procedure Narrative: esophagogastroduodenoscopy and colonoscopy Indications for Procedure Pre-Operative Diagnosis: screening colon, GERD Attestation I attest that I discussed the nature of the procedure; its benefits; risks and complications; and alternatives (and the risks and benefits of such al ternatives), prior to the procedure, with the patient (or the patient's legal employee representative). I attest that, if there was a reasonable possibility of needing a blood transfusion, the patient (or the patient's legal employee representative) was given the [facility] standardized written summary, pursuant to the [place] Blood Safety Act ([place] Health and Safety Code # 1645, as amended). I attest that I re-evaluated the patient just prior to the surgery and that there has been no change in the patient's H&P, except as documented below: Jacky Orantes MD Feb 08, 2020 09:45
--- NOTE | 2020-02-08 09:50 | Anethesia Preoperative Eval ---
Anesthesia Pre-op PMH/ROS General Date of Evaluation: Feb 08, 2020 Time of Evaluation: 09:43 Anesthesiologist: maida ASA Score: ASA 3 Mallampati Score Class I : Soft palate, uvula, fauces, pillars visible Class II: Soft palate, uvula, fauces visible Class III: Soft palate, base of uvula visible Class IV: Only hard plate visible Mallampati Classification: Class II Surgeon: jing Diagnosis: gerd, colon screening Surgical Procedure: egd/colonoscopy Anesthesia History: none Social History: smoking - nonsmoker Family History: no anesthesia problems Allergies: Coded Allergies: CODEINE (Unverified Adverse Reaction, Severe, dizziness, vomiting, 02/04/20) MORPHINE (Verified Adverse Reaction, Severe, dizziness, vomiting, 02/04/20) Medications: see eMAR Patient NPO?: Yes Past Medical History Cardiovascular: Reports: HTN, other - hypercholesterolemia Gastrointestinal/Genitourinary: Reports: GERD, other - vomiting Endocrine: Reports: DM Hematology/Immune: Reports: other - covid-19 negative Musculoskeletal/Integumentary: Reports: other - fibromyalgia, back pain Anesthesia Pre-op Phys. Exam Physician Exam Last Vital Signs Date Time Temp Pulse Resp B/P (MAP) Pulse Ox O2 Delivery O2 Flow Rate FiO2 02/08/20 08:58 Room Air 02/08/20 08:44 97.0 76 18 142/80 97 Constitutional: NAD Neurologic: CN 2-12 intact Cardiovascular: RRR Respiratory: CTA Gastrointestinal: S/NT/ND Airway Exam Mallampati Score: Class II MO: limited Neck: flexible TMD: 2fb ROM: limited Anesthesia Pre-op A/P Labs Microbiology Date/Time Source Procedure Growth Status 02/05/20 12:30 Nasopharynx SARS-CoV-2 RdRp Gene Assay - Final Complete Labs Test 02/08/20 09:10 Studies Pre-op Studies: EKG - nsr Risk Assessment & Plan Assessment: asa3 Plan: mac Status Change Before Surgery: No Pre-Antibiotics Drug: Gregoria Silva MD Feb 08, 2020 09:50
--- NOTE | 2020-02-08 10:11 | Endoscopy Procedure Note ---
Endoscopy Procedure Note General Indication for Procedure: screening colon, GERD Procedures Performed: EGD, colonoscopy Operative Findings/Diagnosis: gastritis, hemorrhoids Specimen: yes Pt Tolerated Procedure Well: Yes Estimated Blood Loss: none Anesthesia Anesthesiologist: buzz Anesthesia: MAC Inserted Devices Implant(s) used?: No Quality Quality of Bowel Preparation: Good Did scope reach the cecum?: Yes Was there any complications?: No GI Core Measures 50 yrs or older w/o bx or poly: No 10yrs. F/U recommended: Yes If not recommended, why?: Above average risk 18 years or older w/prev. colo: Yes <3yrs. since last colonoscopy: No Jacky Orantes MD Feb 08, 2020 10:11
--- NOTE | 2020-02-08 11:00 | Procedure Note ---
DATE OF PROCEDURE: 02/08/2020 SURGEON: Jacky Orantes MD. PROCEDURE: Upper endoscopy with biopsy and colonoscopy. ANESTHESIA: Per Dr. Robles. INSTRUMENT: Olympus adult flexible upper endoscope and colonoscope. REASON FOR PROCEDURE: The procedure, risks, benefits, and possible consequences, including hemorrhage, aspiration, perforation and infection, and alternative treatments, were explained to the patient/legal guardian by Dr. Jacky Orantes and the patient/legal guardian understood and accepted these risks. INDICATION: Screening colonoscopy evaluation and chronic GERD. PROCEDURE IN DETAIL: After informed consent was obtained and the patient was adequately sedated, Olympus upper endoscope was advanced from mouth into the second portion of the duodenum and retroflexion was performed in the stomach. The patient has evidence of diffuse gastritis. Random biopsies from antrum and body was obtained to rule out H. pylori infection. GE junction was about 36 cm from the incisors. There was some mucosal changes in the distal esophagus in a way that the lining was more whitish colored compared to the rest of the esophagus. This significance of this finding is unknown. Biopsy from this area was obtained. At this time, the upper endoscope was retrieved and the patient was turned over for colonoscopy. First, rectal exam was performed, which was positive for internal hemorrhoids. Then, the scope was advanced from rectum into the cecum documented by appendiceal orifice, ileocecal valve, and right upper quadrant palpation. Unfortunately, quality of prep was poor. She had solid stool throughout the colon. I would say 50% of the colonic mucosa was not fully examined given this kind of prep. Retroflexion of rectum was performed which shows evidence of internal hemorrhoids. SUMMARY OF FINDINGS: 1. Gastritis, status post biopsy to rule out H. pylori infection. 2. Status post biopsy of distal esophagus given the color changes of the distal esophageal mucosa. 3. Internal and external hemorrhoids. 4. Poor colonic prep. RECOMMENDATIONS: Follow pathology and treat accordingly. The patient to be seen in the office for discussion about time for the future colonoscopy. Jacky Orantes M.D. DR: LEEANN JOB#: [id number] CC:
--- NOTE | 2020-02-08 11:29 | Immediate Post-Op Evaluation ---
Immediate Post-Op Evalulation Immediate Post-Op Evalulation Procedure: egd/colonoscopy w/bx Date of Evaluation: Feb 08, 2020 Time of Evaluation: 10:41 IV Fluids: 400ml lr Blood Products: none Estimated Blood Loss: negligible Blood Pressure Systolic: 152 Blood Pressure Diastolic: 97 Pulse Rate: 83 Respiratory Rate: 18 O2 Sat by Pulse Oximetry: 100 Temperature (Fahrenheit): 97.9 Pain Score (1-10): 0 Nausea: No Vomiting: No Complications none Patient Status: awake, reacts, patent Hydration Status: adequate Drug: Gregoria Silva MD Feb 08, 2020 11:29
--- NOTE | 2020-02-08 11:31 | 48 Hour Post Anesthesia Eval ---
Post Anesthesia Evaluation Procedure: egd/colonoscopy w/bx Date of Evaluation: Feb 08, 2020 Time of Evaluation: 10:43 Blood Pressure Systolic: 160 0: 85 Pulse Rate: 81 Respiratory Rate: 18 Temperature (Fahrenheit): 97.9 O2 Sat by Pulse Oximetry: 100 Airway: patent Nausea: No Vomiting: No Pain Intensity: 0 Hydration Status: adequate Cardiopulmonary Status: stable Mental Status/LOC: patient returned to baseline Post-Anesthesia Complications: none Follow-up care needed: N/A Gregoria Mckeon MD Feb 08, 2020 11:31
--- NOTE | 2020-02-09 18:24 | Cardiology Report ---
APPROVED REPORT EKG Measurement Heart [id number] <Conclusion> Normal sinus rhythm Normal ECG
== END 2020-02-08 12:50 | disposition home or self-care (01) ==
LOC: GAS 07:40
DX: Z12.11 Encounter for screening for malignant neoplasm of colon (principal); K29.70 Gastritis, unspecified, without bleeding; K21.00 Gastro-esophageal reflux disease with esophagitis, without bleeding; K64.8 Other hemorrhoids; K64.4 Residual hemorrhoidal skin tags; I10 Essential (primary) hypertension; E78.00 Pure hypercholesterolemia, unspecified; Z88.6 Allergy status to analgesic agent; E11.9 Type 2 diabetes mellitus without complications; M79.7 Fibromyalgia; Z79.82 Long term (current) use of aspirin
CPT/HCPCS: 43239; 82962; 93005; 94003; G0121; J2704; J7120; U0002; 94150

== ENCOUNTER → 2020-03-14 | Day surgery (SDC) | payer MEDICARE, OTHER ==
[~2020-03-14] VITALS: Ht 152.4 cm; Wt 69.4 kg
[2020-03-14] VITALS (12 sets, daily range): BP systolic 124–142; BP diastolic 67–82
[~2020-03-14] MED LIST changes: +Atropine Inj 1mg/10ml Syr IVP PRN; +DiphenhydrAMINE 50mg/ml Inj IVP PRN; +LR 1000ml ONE; +Lidocaine 1% MPF 10mg/ml 5ml ONE; +Midazolam 2mg/2ml Inj IVP PRN; +fentaNYL 100 mcg/2 mL IV PRN
--- NOTE | 2020-03-14 07:29 | Anethesia Preoperative Eval ---
Anesthesia Pre-op PMH/ROS General Date of Evaluation: Mar 14, 2020 Time of Evaluation: 07:27 Anesthesiologist: maida ASA Score: ASA 3 Mallampati Score Class I : Soft palate, uvula, fauces, pillars visible Class II: Soft palate, uvula, fauces visible Class III: Soft palate, base of uvula visible Class IV: Only hard plate visible Mallampati Classification: Class II Surgeon: jing Diagnosis: weight loss Surgical Procedure: colonoscopy Anesthesia History: none Social History: smoking - nonsmoker Family History: no anesthesia problems Allergies: Coded Allergies: CODEINE (Unverified Adverse Reaction, Severe, dizziness, vomiting, 02/04/20) MORPHINE (Verified Adverse Reaction, Severe, dizziness, vomiting, 02/04/20) Medications: see eMAR Patient NPO?: Yes Past Medical History Cardiovascular: Reports: HTN, other - hypercholesterolemia Gastrointestinal/Genitourinary: Reports: GERD Endocrine: Reports: DM HEENT: Reports: [place] (L) Musculoskeletal/Integumentary: Reports: other - fibromyalgia Anesthesia Pre-op Phys. Exam Physician Exam Last Vital Signs Date Time Temp Pulse Resp B/P (MAP) Pulse Ox O2 Delivery O2 Flow Rate FiO2 03/14/20 09:28 Room Air Constitutional: NAD Neurologic: CN 2-12 intact Cardiovascular: RRR Respiratory: CTA Gastrointestinal: S/NT/ND Airway Exam Mallampati Score: Class II MO: limited Neck: flexible TMD: 2fb ROM: limited Anesthesia Pre-op A/P Labs Labs Test 03/14/20 10:08 Studies Pre-op Studies: EKG - nsr Risk Assessment & Plan Assessment: asa3 Plan: mac Status Change Before Surgery: No Pre-Antibiotics Drug: Gregoria Silva MD Mar 14, 2020 07:29
--- NOTE | 2020-03-14 09:23 | Pre-Procedure Note/Attestation ---
Pre-Procedure Note/Attestation Complete Prior to Procedure Planned Procedure: not applicable Procedure Narrative: colonoscopy Indications for Procedure Pre-Operative Diagnosis: wt loss Attestation I attest that I discussed the nature of the procedure; its benefits; risks and complications; and alternatives (and the risks and benefits of such alternatives), prior to the procedure, with the patient (or the patient's legal installation service representative). I attest that, if there was a reasonable possibility of needing a blood trans fusion, the patient (or the patient's legal installation service representative) was given the [facility] standardized written summary, pursuant to the [place] Blood Safety Act ([place] Health and Safety Code # 1645, as amended). I attest that I re-evaluated the patient just prior to the surgery and that there has been no change in the patient's H&P, except as documented below: Jacky Orantes MD Mar 14, 2020 09:23
--- NOTE | 2020-03-14 09:24 | Short Stay Surgery H&P ---
History of Present Illness History of Present Illness Chief Complaint see recent office note HPI Esperanza Olivo is a 64 year old female who was admitted on for Weight Loss Patient History Allergies: Coded Allergies: CODEINE (Unverified Adverse Reaction, Severe, dizziness, vomiting, 02/04/20) MORPHINE (Verified Adverse Reaction, Severe, dizziness, vomiting, 02/04/20) Medication History Scheduled Amlodipine Besylate* (Amlodipine Besylate*), 5 MG ORAL DAILY, (Reported) Aspirin* (Aspir 81*), 81 MG ORAL DAILY, (Reported) Atorvastatin Calcium* (Lipitor*), 40 MG ORAL BEDTIME, (Reported) Esomeprazole Magnesium (Nexium), 40 MG ORAL DAILY, (Reported) Ezetimibe (Zetia*), 10 MG ORAL BEDTIME, (Reported) Pravastatin Sod* (Pravachol*), 20 MG ORAL BEDTIME, (Reported) Sitagliptin Phos/Metformin Hcl (Janumet 50-1,000 Mg Tablet), 1 TAB ORAL TWICE A DAY, (Reported) Miscellaneous Medications [place]-3 Fatty Acids (Fish Oil), 500 MG PO, (Reported) Plan Attestation Are the patient's medical conditions optimized for surgery? Jacky Orantes MD Mar 14, 2020 09:24
--- NOTE | 2020-03-14 10:14 | Endoscopy Procedure Note ---
Endoscopy Procedure Note General Indication for Procedure: weiht loss Procedures Performed: colonoscopy Operative Findings/Diagnosis: hemorrhoids Specimen: none Pt Tolerated Procedure Well: Yes Estimated Blood Loss: none Anesthesia Anesthesiologist: buzz Anesthesia: MAC Inserted Devices Implant(s) used?: No Quality Quality of Bowel Preparation: Good Did scope reach the cecum?: Yes Was there any complications?: No GI Core Measures 50 yrs or older w/o bx or poly: No 10yrs. F/U recommended: Yes If not recommended, why?: Above average risk 18 years or older w/prev. colo: Yes <3yrs. since last colonoscopy: Yes Med reason:<3 yrs.: Inadequate Prep Jacky Orantes MD Mar 14, 2020 10:14
--- NOTE | 2020-03-14 10:56 | Immediate Post-Op Evaluation ---
Immediate Post-Op Evalulation Immediate Post-Op Evalulation Procedure: colonoscopy Date of Evaluation: Mar 14, 2020 Time of Evaluation: 10:54 IV Fluids: 250ml lr Blood Products: none Estimated Blood Loss: negligible Blood Pressure Systolic: 135 Blood Pressure Diastolic: 82 Pulse Rate: 71 Respiratory Rate: 18 O2 Sat by Pulse Oximetry: 99 Temperature (Fahrenheit): 98.0 Pain Score (1-10): 0 Nausea: No Vomiting: No Complications none Patient Status: awake, reacts, patent Hydration Status: adequate Drug: Gregoria Silva MD Mar 14, 2020 10:56
--- NOTE | 2020-03-14 10:58 | 48 Hour Post Anesthesia Eval ---
Post Anesthesia Evaluation Procedure: colonoscopy Date of Evaluation: Mar 14, 2020 Time of Evaluation: 10:56 Blood Pressure Systolic: 130 0: 74 Pulse Rate: 69 Respiratory Rate: 18 Temperature (Fahrenheit): 98.0 O2 Sat by Pulse Oximetry: 100 Airway: patent Nausea: No Vomiting: No Pain Intensity: 0 Hydration Status: adequate Cardiopulmonary Status: stable Mental Status/LOC: patient returned to baseline Post-Anesthesia Complications: none Follow-up care needed: N/A Gregoria Mckeon MD Mar 14, 2020 10:58
--- NOTE | 2020-03-14 11:15 | Procedure Note ---
DATE OF PROCEDURE: 03/14/2020 SURGEON: Jacky Orantes MD. PROCEDURE: Colonoscopy. ANESTHESIA: Per Dr. Robles. INSTRUMENT: Olympus adult flexible colonoscope. INDICATION: Weight loss. REASON FOR PROCEDURE: The procedure, risks, benefits, and possible consequences, including hemorrhage, aspiration, perforation and infection, and alternative treatments, were explained to the patient/legal guardian by Dr. Jacky Orantes and the patient/legal guardian understood and accepted these risks. PROCEDURE IN DETAIL: After informed consent was obtained and the patient was adequately sedated, first rectal exam was performed, which was positive for internal hemorrhoids. Then, the scope was advanced from the rectum into the cecum and then subsequently into terminal ileum. Quality of prep was very good. The patient had normal colonoscopy examination. No obvious mass, polyp, diverticulosis, or any pathology was seen. Retroflexion of rectum showed evidence of internal hemorrhoids. SUMMARY OF FINDINGS: Normal colonoscopy examination except for internal hemorrhoids. RECOMMENDATIONS: Follow in the office for further workup of weight loss. I want to thank, Dr. Gauthier, for this kind referral. Jacky Orantes M.D. DR: Hugo JOB#: [id number] CC: Dr. Gauhtier
== END | disposition home or self-care (01) ==
LOC: GAS 08:03
DX: R63.4 Abnormal weight loss (principal); K64.8 Other hemorrhoids; Z88.6 Allergy status to analgesic agent; Z79.82 Long term (current) use of aspirin; Z79.899 Other long term (current) drug therapy; I10 Essential (primary) hypertension; E78.00 Pure hypercholesterolemia, unspecified; K21.9 Gastro-esophageal reflux disease without esophagitis; E11.9 Type 2 diabetes mellitus without complications; M79.7 Fibromyalgia; Z68.29 Body mass index [BMI] 29.0-29.9, adult
CPT/HCPCS: 45378; 82962; 94003; J2704; J7120; U0002; 94150

== ENCOUNTER 2020-04-21 12:00 | Outpatient (CLI) | payer MEDICARE, OTHER ==
[~2020-04-21 12:00] MED LIST changes: -Atropine Inj 1mg/10ml Syr IVP PRN; -DiphenhydrAMINE 50mg/ml Inj IVP PRN; -LR 1000ml 1,000 ML IVLG SCH; -LR 1000ml ONE; -Lidocaine 1% MPF 10mg/ml 5ml ONE; -Midazolam 2mg/2ml Inj IVP PRN; -fentaNYL 100 mcg/2 mL IV PRN
--- NOTE | 2020-04-22 14:33 | General Progress Note ---
Subjective ROS Limited/Unobtainable: Yes Allergies: Coded Allergies: CODEINE (Unverified Adverse Reaction, Severe, dizziness, vomiting, 02/04/20) MORPHINE (Verified Adverse Reaction, Severe, dizziness, vomiting, 02/04/20) Objective General Appearance: alert EENT: normal ENT inspection Neck: supple Cardiovascular: normal rate Respiratory/Chest: decreased breath sounds Abdomen: normal bowel sounds, non tender, soft Extremities: non-tender Assessment/Plan Assessment/Plan: 1. Hypertension. 2. Diabetes. 3. Hypercholesteremia. 4. gastritis 5. abd pain s/p EGd and colonoscopy s/p CT still c/o severe luq abd pain plan MRI add prn Jacky Lopes MD Apr 22, 2020 14:33
== END 2020-04-21 14:45 | disposition home or self-care (01) ==
LOC: PAN 12:00
DX: K29.70 Gastritis, unspecified, without bleeding (principal); I10 Essential (primary) hypertension; E11.9 Type 2 diabetes mellitus without complications; E78.00 Pure hypercholesterolemia, unspecified; R10.12 Left upper quadrant pain; Z88.6 Allergy status to analgesic agent
CPT/HCPCS: 99212